=== PATIENT | female | born 1995 | race Asian ===

== ENCOUNTER 2018-09-02 20:08 | Emergency (ER) | payer OTHER ==
[2018-09-02 20:30] VITALS: BP 138/82
[2018-09-02] MEDS ORDERED: Ketorolac INJ* 60 MG/2 ML VIAL IM ONE (20:36)
[2018-09-02] MEDS ORDERED: HYDROcodone/ACETAMIN 5-325 MG* 1 TAB PO ONE (20:36)
[2018-09-02] MEDS ORDERED: Ketorolac INJ* 30 MG/ML 1 ML VIAL IM ONE (20:52)
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
[2018-09-02] MEDS ORDERED: Silver Sulfadiazine 1%* 20 GM TOPICAL ONE (21:16)
== END 2018-09-02 22:15 | disposition home or self-care (01) ==
LOC: UCEAST 20:08
DX: T20.16XA Burn of first degree of forehead and cheek, initial encounter (principal); T31.0 Burns involving less than 10% of body surface; X13.1XXA Other contact with steam and other hot vapors, initial encounter; Y93.G3 Activity, cooking and baking; Y92.010 Kitchen of single-family (private) house as the place of occurrence of the external cause; Y99.8 Other external cause status
CPT/HCPCS: 16000; 96372; 99203; A9270-GY; G0463; J1885

== ENCOUNTER 2019-03-19 17:50 | Emergency (ER) | payer OTHER ==
[2019-03-19 17:55] VITALS: BP 147/84
[2019-03-19] MEDS ORDERED: Ciprofloxacin TAB* 500 MG PO ONE (18:42)
--- NOTE | 2019-03-19 18:46 | ED ---
Throat Pain/Nasal Congestion - HPI Summary HPI Summary: 23 year old female presents with right ear pain for the past couple days. She was seen at [facility] and was diagnosed with otitis externa on Wednesday and has been using antibiotic drops for the past couple days. She states that it feels like it is worse. States she may have had a fever yesterday. She admits to sinus congestion. Denies any sore throat. No cough. She states she does have a history of ear infections a year ago. She has been taking the drops as prescribed. She admits to decrease in hearing. Denies any ear pressure. No headache. Has been taking Tylenol or ibuprofen pain with minimally relief. - History of Current Complaint Chief Complaint: EDEarPain Time Seen by Provider: 03/19/19 18:15 - Allergies/Home Medications Allergies/Adverse Reactions: Allergies Allergy/AdvReac Type Severity Reaction Status Date / Time No Known Allergies Allergy Verified 03/19/19 17:54 Home Medications: Home Medications Ciproflox/Dexameth OTIC.SUSP* [Ciprodex OTIC.SUSP*] 4 drop RIGHT EAR BID [History Confirmed 03/19/19] PMH/Surg Hx/FS Hx/Imm Hx Endocrine/Hematology History: Denies: Hx Anticoagulant Therapy Respiratory History: Denies: Hx Asthma Infectious Disease History: No Infectious Disease History: Denies: Traveled Outside the [place] in Last 30 Days - Family History Known Family History: Positive: Non-Contributory - Social History Alcohol Use: Occasionally Substance Use Type: Reports: None Smoking Status (MU): Never Smoked Tobacco Review of Systems Negative: Fever Positive: Ear Ache Negative: Chest Pain Negative: Shortness Of Breath All Other Systems Reviewed And Are Negative: Yes Physical Exam Triage Information Reviewed: Yes Vital Signs On Initial Exam: Initial Vitals Temp Pulse Resp BP Pulse Ox 99.6 F 97 16 147/84 98 03/19/19 17:52 03/19/19 17:52 03/19/19 17:52 03/19/19 17:52 03/19/19 17:52 Vital Signs Reviewed: Yes Appearance: Positive: Well-Appearing Skin: Positive: Warm, Dry Head/Face: Positive: Normal Head/Face Inspection Eyes: Positive: Normal, EOMI, MELIZA, Conjunctiva Clear ENT: Positive: Pharynx normal, TMs normal, Other - ear canal edematous and erythematous with debris present that removed from right ear, tenderness over tragus. nontender over mastoid Respiratory/Lung Sounds: Positive: Clear to Auscultation, Breath Sounds Present Cardiovascular: Positive: Normal, RRR Musculoskeletal: Positive: Normal Neurological: Positive: Normal Psychiatric: Positive: Normal Procedures - Sedation Patient Received Moderate/Deep Sedation with Procedure: No Diagnostics - Vital Signs Vital Signs Temp Pulse Resp BP Pulse Ox 03/19/19 17:52 99.6 F 97 16 147/84 98 - Laboratory Lab Statement: Any lab studies that have been ordered have been reviewed, and results considered in the medical decision making process. EENT Course/Dx - Course Course Of Treatment: 23 year old female presents with right ear pain for the past couple days. She was seen at [facility] and was diagnosed with otitis externa on Wednesday and has been using antibiotic drops for the past couple days. She states that it feels like it is worse. States she may have had a fever yesterday. She admits to sinus congestion. Denies any sore throat. No cough. She states she does have a history of ear infections a year ago. She has been taking the drops as prescribed. She admits to decrease in hearing. Denies any ear pressure. No headache. Has been taking Tylenol or ibuprofen pain with minimally relief. On exam TMs are normal. Right ear canal erythematous and edematous with debris present. Removed debris from ear. Sent for culture. Nontender mastoid. Discussed putting wick in ear and patient declined at this time. We will add on Cipro with worsening infection per patient. We'll give referral to ENT. Patient understands and agrees the plan. - Differential Diagnoses Differential Diagnoses: Otitis Externa, Otitis Media, URI/Bronchitis - Diagnoses Provider Diagnoses: Otitis externa Discharge ED - Sign-Out/Discharge Documenting (check all that apply): Patient Departure - Discharge Plan Condition: Good Disposition: HOME Prescriptions: Ciprofloxacin TAB* [Cipro 500 MG TAB*] 500 mg PO BID #13 tab Patient Education Materials: Otitis Externa (ED) Referrals: No Primary Care Phys,NOPCP [Primary Care Provider] - Sulaiman Abbasi MD [Medical Doctor] - Additional Instructions: continue drops Add on cipro twice a day for 7 days follow up with ENT Take tyenlol or ibuprofen every 6 hours for pain Return to ED if develop any new or worsening symptoms - Billing Disposition and Condition Condition: GOOD Disposition: Home - Attestation Statements Provider Attestation: I was available for consultation for this patient. I did not evaluate the patient or participate in any medical decision making or disposition decisions unless I am specifically named in the chart as having consulted on the patient. If I have consulted on the patient, please see my own ED note on the patient encounter. Elena Rodas MD
== END 2019-03-19 18:54 | disposition home or self-care (01) ==
LOC: ED 17:50
DX: H60.91 Unspecified otitis externa, right ear (principal); R09.81 Nasal congestion
CPT/HCPCS: 87070; 87106; 87205; 87640; 87641; 99282; A9270-GY